=== PATIENT | male | born 1985 | race Caucasian/White ===

== ENCOUNTER 2019-10-27 17:54 | Emergency (ER) | payer SELFPAY ==
[~2019-10-27] VITALS: Ht 162.6 cm; Wt 63.6 kg
[2019-10-27 18:02] VITALS: BP 122/76
--- NOTE | 2019-10-27 18:07 | PHYS DOC ---
General Adult EDM: Chief Complaint: KNEE INJURY HPI: HPI: " I think I am trying to get an infection....I had them before get worse and turn into an abscess..." Patient is a 34 year old male who presents with above hx and complaints of infected or ingrown hair or insect bite on Lt. knee. Pt. states it started couple days ago and has gotten worse this week end. Pt. updated tetanus less than 2 yrs. No travel or specific ill contacts. No hx of travel out side of [place] area. No hx of imuno suppression. Area of erythema 16 x8 cm, with central indurated area 3x2 cm. No obvious abscess. No adenopathy or lymphatic striations. Review of Systems: Review of Systems: Constitutional: Denies fever or chills Eyes: Denies change in visual acuity HENT: Denies nasal congestion or sore throat Respiratory: Denies cough or shortness of breath Cardiovascular: Denies chest pain or edema GI: Denies abdominal pain, nausea, vomiting, bloody stools or diarrhea : Denies dysuria Musculoskeletal: Denies back pain or joint pain Integument: Complaints of cellulitis Neurologic: Denies headache, focal weakness or sensory changes Endocrine: Denies polyuria or polydipsia Lymphatic: Denies swollen glands Psychiatric: Denies depression or anxiety Heart Score: Risk Factors: Risk Factors: DM, Current or recent (<one month) smoker, HTN, HLP, family history of CAD, obesity. Risk Scores: Score 0 - 3: 2.5% MACE over next 6 weeks - Discharge Home Score 4 - 6: 20.3% MACE over next 6 weeks - Admit for Clinical Observation Score 7 - 10: 72.7% MACE over next 6 weeks - Early Invasive Strategies Family History: Family History: Non-contributory Current Medications: Current Meds: See Nursing for home meds Allergies: Allergies: Allergies Coded Allergies Type Severity Reaction Last Updated Verified No Known Drug Allergies 10/27/19 No Physical Exam: PE: Constitutional: Moderate acute distress, non-toxic appearance. [] HENT: Normocephalic, a traumatic, bilateral external ears normal, oropharynx moist, no oral exudates, nose normal. [] Eyes: PERRLA, EOMI, conjunctiva normal, no discharge. [] Neck: Normal range of motion, no tenderness, supple, no stridor. [] Cardiovascular:Heart rate regular rhythm, no murmur [] Lungs & Thorax: Bilateral breath sounds clear to auscultation [] Abdomen: Bowel sounds normal, soft, no tenderness, no masses, no pulsatile masses. [] Skin: Warm, dry, no erythema, no rash. [] Except finding of cellulitis Lt. knee. Back: No tenderness, no CVA tenderness. [] Extremities: No tenderness, no cyanosis, no clubbing, ROM intact, no edema. [] Neurologic: Alert and oriented X 3, normal motor function, normal sensory function, no focal deficits noted. [] Psychologic: Affect anxious,, judgement normal, mood normal. [] EKG: EKG: [] Radiology/Procedures: Radiology/Procedures: [] Course & Med Decision Making: Course & Med Decision Making Pertinent Labs and Imaging studies reviewed. (See chart for details) Use salt or episome salt water compresses 4 x day. Then massage in polysporin. Take Bactrim DS twice a day. Return if any concerns. Followup with primary. Tylenol and Ibuprofen for pain. 1. Cellulitis [] Dragon Disclaimer: Dragon Disclaimer: This electronic medical record was generated, in whole or in part, using a voice recognition dictation system. Departure Departure: Disposition: HOME/RESIDENCE PRIOR TO ADM Condition: STABLE Referrals: PCP,NO (PCP) Scripts Sulfamethoxazole/Trimethoprim (BACTRIM DS TABLET) 1 Each Tablet 1 TAB PO BID for cellulitis for 10 Days, #20 TAB 0 Refills Prov: LUISA TOTH MD 10/27/19 Justification of Admission: Justification of Admission: Justification of Admission Dx: N/A Dragon Disclaimer This chart was dictated in whole or in part using Voice Recognition software in a busy, high-work load, and often noisy Emergency Department environment. It may contain unintended and wholly unrecognized errors or omissions. LUISA TOTH MD Oct 27, 2019 18:06
[2019-10-27] MEDS ORDERED: SULF1TAB24 PO (18:13)
[2019-10-27] MEDS ORDERED: SMZ/TMP 800/160MG TABLET. PO ONE (18:15)
== END 2019-10-27 18:15 | disposition home or self-care (01) ==
LOC: ER 17:54
DX: L03.116 Cellulitis of left lower limb (principal)
CPT/HCPCS: 99283